=== PATIENT | female | born 1980 | race African-American/Black ===

== ENCOUNTER 2017-03-19 20:40 | Emergency (ER) | payer OTHER ==
[~2017-03-19] VITALS: Ht 160 cm; Wt 75.6 kg
[2017-03-19 21:17] LABS: HEMATOCRIT 38.6 % (36.0-46.0); MCH 30.6 PG (29.0-34.0); MCHC 33.9 G/DL (30.0-36.0); MCV 90.2 FL (83-99); MEAN PLAT.VOLUME 10.4 uM^3 (9.5-12.4); PLATELET COUNT 194 K/uL (156-360); RBC DIS.WIDTH-CV 13.2 % (11.8-14.6); RBC DIS.WIDTH-SD 43.6 % (39-53); RED BLOOD COUNT 4.28 M/uL (3.80-5.20); WHITE BLOOD COUNT 6.1 K/uL (4.1-10.2)
[2017-03-19] MEDS ORDERED: ALDOMET250 MG PO (21:23)
[2017-03-19] MEDS ORDERED: PRENATAL TABLE1 EAC3 PO (21:24)
[2017-03-19 23:58] LABS: ADD MIUA? NO; BILIRUBIN NEGATIVE; BLOOD NEGATIVE; COLOR STRAW ((YELLOW)); GLUCOSE (STRIP) NEGATIVE; KETONES NEGATIVE; LEUKOCYTES NEGATIVE; NITRITE NEGATIVE; PROTEIN (STRIP) NEGATIVE; SPECIFIC GRAVITY 1.005 (1.000-1.030); UCUL ADDED? NO; UROBILINOGEN 0.2 MG/DL (0.2-1.0)
[2017-03-20 00:20] VITALS: BP 167/119
== END 2017-03-20 00:22 | disposition home or self-care (01) ==
LOC: EME 20:40
DX: O03.9 Complete or unspecified spontaneous abortion without complication (principal)
CPT/HCPCS: 76801; 81003; 84702; 85027; 99281; 99284

== ENCOUNTER 2017-04-04 06:18 | Observation (INO) | payer OTHER ==
[~2017-04-04] VITALS: Ht 160 cm; Wt 66.7 kg
[~2017-04-04 06:18] MED LIST: ALDOMET250 MG PO; PRENATAL TABLE1 EAC3 PO
[2017-04-04 07:02] LABS: ADD MIUA? YES; BILIRUBIN NEGATIVE; BLOOD MODERATE; COLOR YELLOW ((YELLOW)); GLUCOSE (STRIP) NEGATIVE; KETONES NEGATIVE; LEUKOCYTES NEGATIVE; NITRITE NEGATIVE; PROTEIN (STRIP) NEGATIVE; SPECIFIC GRAVITY 1.011 (1.000-1.030); UROBILINOGEN 0.2 MG/DL (0.2-1.0)
[2017-04-04 07:06] LABS: HEMATOCRIT 38.7 % (36.0-46.0); MCH 30.6 PG (29.0-34.0); MCHC 34.4 G/DL (30.0-36.0); MCV 89.2 FL (83-99); MEAN PLAT.VOLUME 10.7 uM^3 (9.5-12.4); PLATELET COUNT 201 K/uL (156-360); RBC DIS.WIDTH-CV 12.9 % (11.8-14.6); RBC DIS.WIDTH-SD 42.5 % (39-53); RED BLOOD COUNT 4.34 M/uL (3.80-5.20); WHITE BLOOD COUNT 8.1 K/uL (4.1-10.2)
[2017-04-04 07:09] LABS: BACTERIA RARE /HPF; EPITHELIAL CELLS 1+ /HPF; MUCUS TRACE /LPF; WHITE BLOOD CELLS 0-5 /HPF (0-5)
[2017-04-04 07:27] LABS: ANION GAP 9 MEQ/L (2-14); CHLORIDE 103 MEQ/L (99-109); POTASSIUM 3.3 MEQ/L (3.7-5.4); SAMPLE HEMOLYSIS CHECK 0; SAMPLE ICTERIC CHECK 0; SAMPLE LIPEMIA CHECK 0; SODIUM 134 MEQ/L (136-147); TOTAL BILIRUBIN 1.2 MG/DL (0.0-1.0)
[2017-04-04 07:32] LABS: ALKALINE PHOSPHATASE 56 IU/L (3-129); GFR ESTIMATE (CALCULATED) > 59 mL/min/; GLUCOSE 100 mg/dL (70-99); LIPASE 18 U/L (1.0-51.0); UREA NITROGEN (BUN) 10 mg/dL (9-23)
[2017-04-04 07:38] LABS: TROP-I INTERPRETATION NEGATIVE; TROPONIN-I < 0.01 ng/mL (0.0-0.30)
[2017-04-04 08:05] LABS: QUANTITATIVE HCG 50678.6 MIU/ML
[2017-04-04 11:57] VITALS: BP 165/102
[2017-04-04 14:41] VITALS: BP 165/108
[2017-04-04 18:11] VITALS: BP 167/101
[2017-04-04 21:44] VITALS: BP 147/96
[2017-04-05 01:00] VITALS: BP 137/91
[2017-04-05 05:28] LABS: CHLORIDE 107 mEq/L (99-109); POTASSIUM 3.6 mEq/L (3.7-5.4); SODIUM 139 mEq/L (136-147)
[2017-04-05 05:29] LABS: GLUCOSE 90 mg/dL (70-99)
[2017-04-05 05:31] LABS: ANION GAP 9 MEQ/L (2-14)
[2017-04-05 05:33] LABS: GFR ESTIMATE (CALCULATED) > 59 mL/min/
[2017-04-05 05:34] LABS: UREA NITROGEN (BUN) 6 mg/dL (9-23)
[2017-04-05 05:35] VITALS: BP 171/103
[2017-04-05 06:19] VITALS: BP 162/99
[2017-04-05 07:13] VITALS: BP 137/90
[2017-04-05] MEDS ORDERED: LABETALOL HCL100 MG PO (11:21)
[2017-04-05 11:33] VITALS: BP 153/98
== END 2017-04-05 12:49 | disposition home or self-care (01) ==
LOC: EME 06:18 → 4EAST 09:23 → EDOF 09:23 → 4EAST 11:48
PROVIDERS: Family Medicine; Nurse Practitioner Family
DX: O10.911 Unspecified pre-existing hypertension complicating pregnancy, first trimester (principal); I16.1 Hypertensive emergency; E87.6 Hypokalemia; E87.1 Hypo-osmolality and hyponatremia; Z3A.01 Less than 8 weeks gestation of pregnancy; O34.11 Maternal care for benign tumor of corpus uteri, first trimester; G43.909 Migraine, unspecified, not intractable, without status migrainosus
CPT/HCPCS: 76801; 80048; 80053; 81003; 83690; 84484; 84702; 85027; 93005; 99281; 99285; G0378; J2405; J7030

== ENCOUNTER 2017-04-18 23:26 | Emergency (ER) | payer OTHER ==
[~2017-04-18] VITALS: Ht 160 cm; Wt 75.0 kg
[~2017-04-18 23:26] MED LIST changes: +LABETALOL HCL100 MG PO
[2017-04-18 23:56] LABS: ADD MIUA? YES; BILIRUBIN NEGATIVE; BLOOD LARGE; COLOR STRAW ((YELLOW)); GLUCOSE (STRIP) NEGATIVE; KETONES NEGATIVE; LEUKOCYTES NEGATIVE; NITRITE NEGATIVE; PROTEIN (STRIP) NEGATIVE; SPECIFIC GRAVITY 1.006 (1.000-1.030); UROBILINOGEN 0.2 MG/DL (0.2-1.0)
[2017-04-19 01:19] LABS: HEMATOCRIT 36.4 % (36.0-46.0); MCH 30.9 PG (29.0-34.0); MCHC 33.8 G/DL (30.0-36.0); MCV 91.5 FL (83-99); MEAN PLAT.VOLUME 10.9 uM^3 (9.5-12.4); PLATELET COUNT 175 K/uL (156-360); RBC DIS.WIDTH-CV 12.7 % (11.8-14.6); RBC DIS.WIDTH-SD 42.6 % (39-53); RED BLOOD COUNT 3.98 M/uL (3.80-5.20); WHITE BLOOD COUNT 4.9 K/uL (4.1-10.2)
[2017-04-19 01:20] LABS: BACTERIA RARE /HPF; EPITHELIAL CELLS 1+ /HPF; MUCUS TRACE /LPF; RED BLOOD CELLS 0-5 /HPF (0-5); UCUL ADDED? NO; WHITE BLOOD CELLS 0-5 /HPF (0-5)
[2017-04-19 01:46] LABS: QUANTITATIVE HCG 11230.6 MIU/ML
[2017-04-19 02:18] LABS: TOTAL BILIRUBIN 1.2 mg/dL (0.0-1.0)
[2017-04-19 02:19] LABS: ALKALINE PHOSPHATASE 58 IU/L (3-129)
[2017-04-19 02:22] LABS: DIRECT BILIRUBIN 0.4 mg/dL (0.0-0.3)
[2017-04-19 04:37] VITALS: BP 172/110
[2017-04-22] MEDS ORDERED: LABETALOL HCL100 MG PO (15:21)
[2017-04-22] MEDS ORDERED: TRAMADOL HCL50 MG PO (15:21)
== END 2017-04-19 04:38 | disposition home or self-care (01) ==
LOC: EME 23:26
DX: O03.9 Complete or unspecified spontaneous abortion without complication (principal); I10 Essential (primary) hypertension
CPT/HCPCS: 76801; 80076; 81003; 84702; 85027; 99281; 99284

== ENCOUNTER 2017-04-21 11:29 | Emergency (ER) | payer OTHER ==
[~2017-04-21] VITALS: Ht 160 cm; Wt 75.3 kg
[2017-04-21 12:57] LABS: HEMATOCRIT 38.2 % (36.0-46.0); MCH 30.7 PG (29.0-34.0); MCHC 33.8 G/DL (30.0-36.0); MEAN PLAT.VOLUME 10.8 uM^3 (9.5-12.4); PLATELET COUNT 187 K/uL (156-360); RBC DIS.WIDTH-CV 12.5 % (11.8-14.6); RBC DIS.WIDTH-SD 41.4 % (39-53); WHITE BLOOD COUNT 7.6 K/uL (4.1-10.2)
[2017-04-21 14:48] LABS: ADD MIUA? YES; BILIRUBIN NEGATIVE; BLOOD MODERATE; COLOR COLORLESS ((YELLOW)); GLUCOSE (STRIP) NEGATIVE; KETONES NEGATIVE; LEUKOCYTES NEGATIVE; NITRITE NEGATIVE; PROTEIN (STRIP) NEGATIVE; SPECIFIC GRAVITY 1.003 (1.000-1.030); UROBILINOGEN 0.2 MG/DL (0.2-1.0)
[2017-04-21 15:03] LABS: BACTERIA NONE SEEN /HPF; EPITHELIAL CELLS RARE /HPF; MUCUS NONE SEEN /LPF; UCUL ADDED? NO; WHITE BLOOD CELLS 0-5 /HPF (0-5)
[2017-04-21] MEDS ORDERED: ULTRAM50 MG PO (15:08)
[2017-04-21 15:36] VITALS: BP 168/102
[2017-04-22] MEDS ORDERED: LABETALOL HCL100 MG PO (15:21)
[2017-04-22] MEDS ORDERED: TRAMADOL HCL50 MG PO (15:21)
== END 2017-04-21 15:36 | disposition home or self-care (01) ==
LOC: EME 11:29
DX: O03.9 Complete or unspecified spontaneous abortion without complication (principal); I10 Essential (primary) hypertension
CPT/HCPCS: 76801; 81003; 84702; 85027; 99281; 99285

== ENCOUNTER 2017-04-23 06:41 | Day surgery (SDC) | payer OTHER ==
[~2017-04-23] VITALS: Ht 160 cm; Wt 68.0 kg
[~2017-04-23 06:41] MED LIST changes: +TRAMADOL HCL50 MG PO; +ULTRAM50 MG PO
[2017-04-23 07:16] VITALS: BP 164/101
[2017-04-23] MEDS ORDERED: VIBRAMYCIN100 MG PO (10:01)
[2017-04-23] MEDS ORDERED: IBUPROFEN800 MG PO (10:01)
[2017-04-23 11:36] VITALS: BP 168/114
[2017-04-23 12:15] VITALS: BP 177/110
== END 2017-04-23 12:15 | disposition home or self-care (01) ==
LOC: SDC
PROC: 10D17ZZ Extraction of Products of Conception, Retained, Via Natural or Artificial Opening (ICD-10-PCS; principal; 2017-04-23)
DX: O02.1 Missed abortion (principal); D25.9 Leiomyoma of uterus, unspecified; I10 Essential (primary) hypertension; Z91.018 Allergy to other foods; Z88.8 Allergy status to other drugs, medicaments and biological substances
CPT/HCPCS: 86900; 86901; 88305; J0690; J1100; J2250; J2405; J2550; J3010

== ENCOUNTER 2017-06-25 22:44 | Emergency (ER) | payer OTHER ==
[~2017-06-25] VITALS: Ht 160 cm; Wt 76.8 kg
[~2017-06-25 22:44] MED LIST changes: +IBUPROFEN800 MG PO; +VIBRAMYCIN100 MG PO
[2017-06-26] MEDS ORDERED: MOTRIN800 MG PO (00:59)
[2017-06-26] MEDS ORDERED: REGLAN10 MG PO (01:12)
[2017-06-26 01:29] VITALS: BP 147/104
== END 2017-06-26 01:31 | disposition home or self-care (01) ==
LOC: EME 22:44
DX: R51 Headache (principal); I10 Essential (primary) hypertension; M54.2 Cervicalgia; R11.0 Nausea
CPT/HCPCS: 70450; 99281; 99284